=== PATIENT | female | born 1970 | race Caucasian/White ===

== ENCOUNTER 2020-11-08 10:45 | Emergency (ER) | payer OTHER ==
[~2020-11-08] VITALS: Ht 167.6 cm; Wt 81.6 kg
--- NOTE | 2020-11-08 11:02 | NUR ---
Dr Lopez at the bedside for MSE.
--- NOTE | 2020-11-08 11:22 | NUR ---
Patient discharged to home in stable condition. Written and verbal after care instructions given. Patient verbalizes understanding of instructions. Stressed follow up or return to ER for worsening s/s.
[2020-11-08 11:23] VITALS: BP 155/99
== END 2020-11-08 11:24 | disposition home or self-care (01) ==
LOC: ER 10:45
DX: S06.0X0A Concussion without loss of consciousness, initial encounter (principal); S73.102A Unspecified sprain of left hip, initial encounter; W01.198A Fall on same level from slipping, tripping and stumbling with subsequent striking against other object, initial encounter; Y93.01 Activity, walking, marching and hiking; Y92.239 Unspecified place in hospital as the place of occurrence of the external cause; Y99.0 Civilian activity done for income or pay
CPT/HCPCS: A4663

== ENCOUNTER 2020-12-13 10:03 | Emergency (ER) | payer BC, OTHER ==
[~2020-12-13] VITALS: Ht 167.6 cm; Wt 81.6 kg
--- NOTE | 2020-12-13 10:17 | NUR ---
Dr Peraza at the bedside for MSE.
[2020-12-13] MEDS ORDERED: CLONIDINE HCL 0.2 MG TABLET ONE (10:21)
[2020-12-13] MEDS ORDERED: CLONIDINE HCL 0.2 MG TABLET PO ONE (10:30)
[2020-12-13 11:31] LABS: BASOPHILS # (AUTO) 0.1 K/uL (0.0-8.0); BASOPHILS % (AUTO) 0.7 % (0.0-2.0); EOSINOPHILS # (AUTO) 0.1 K/uL (0.0-0.7); EOSINOPHILS % (AUTO) 0.5 % (0.0-7.0); HEMATOCRIT 41.9 % (31.2-41.9); HEMOGLOBIN 14.4 g/dL (10.9-14.3); LYMPHOCYTES # (AUTO) 2.7 K/uL (20.0-40.0); LYMPHOCYTES % (AUTO) 26.9 % (20.5-51.5); MEAN CORPUSCULAR HEMOGLOBIN 35.9 uug (24.7-32.8); MEAN CORPUSCULAR HGB CONC 34 g/dL (32.3-35.6); MEAN CORPUSCULAR VOLUME 104.3 fL (75.5-95.3); MONOCYTES # (AUTO) 0.5 K/uL (2.0-10.0); MONOCYTES % (AUTO) 4.7 % (0.0-11.0); NEUTROPHILS # (AUTO) 6.8 K/uL (1.8-8.9); NEUTROPHILS % (AUTO) 67.2 % (38.5-71.5); PLATELET COUNT (AUTO) 210 K/uL (179-408); RED BLOOD CELL COUNT(AUTO) 4.02 MIL/uL (3.63-4.92); WHITE BLOOD COUNT (AUTO) 10.2 K/uL (3.8-11.8)
[2020-12-13 11:37] LABS: CREATININE 0.6 mg/dL (0.6-1.3)
[2020-12-13 12:33] VITALS: BP 131/90
== END 2020-12-13 12:33 | disposition home or self-care (01) ==
LOC: ER 10:03
DX: I10 Essential (primary) hypertension (principal); Z91.14 Patient's other noncompliance with medication regimen
CPT/HCPCS: 36415; 85025; A4663

== ENCOUNTER 2021-02-03 10:28 | Emergency (ER) | payer BC, OTHER ==
[~2021-02-03] VITALS: Ht 165.1 cm; Wt 83.9 kg
[2021-02-03] MEDS ORDERED: EFIN4SOL TP (10:45)
== END 2021-02-03 11:00 | disposition home or self-care (01) ==
LOC: ER 10:28
DX: B35.1 Tinea unguium (principal); I10 Essential (primary) hypertension
CPT/HCPCS: A4663

== ENCOUNTER 2021-02-14 11:56 | Outpatient (CLI) | payer BC, OTHER ==
[~2021-02-14 11:56] MED LIST: EFIN4SOL TP
== END 2021-02-14 23:59 | disposition home or self-care (01) ==
LOC: US 11:56
PROVIDERS: ATTEND Legal Medicine
DX: Z75.3 Unavailability and inaccessibility of health-care facilities (principal)

== ENCOUNTER 2021-02-17 14:49 | Outpatient (CLI) | payer BC, OTHER | END 2021-02-17 23:59 | disposition home or self-care (01) | LOC: US 14:49 | PROVIDERS: ATTEND Legal Medicine | DX: N63.20 Unspecified lump in the left breast, unspecified quadrant (principal) | CPT/HCPCS: 76642 ==

== ENCOUNTER 2021-10-18 16:03 | Emergency (ER) | payer BC, OTHER ==
[~2021-10-18] VITALS: Ht 165.1 cm; Wt 83.9 kg
--- NOTE | 2021-10-18 17:16 | NUR ---
PT WAS EVALUATED BY DR MERCEDES. PT WAS D/C'd TO HOME. D/C INSTRUCTIONS GIVEN TO THE PT BY DR MERCEDES.
[2021-10-18 17:18] VITALS: BP 142/81
== END 2021-10-18 17:18 | disposition home or self-care (01) ==
LOC: ER 16:07
DX: Z20.822 Contact with and (suspected) exposure to COVID-19 (principal)
CPT/HCPCS: A4663

== ENCOUNTER 2021-12-19 14:16 | Emergency (ER) | payer BC, OTHER ==
[~2021-12-19] VITALS: Ht 165.1 cm; Wt 83.9 kg
--- NOTE | 2021-12-19 14:43 | NUR ---
DR KASPER AT BEDSIDE FOR EVATION.
[2021-12-19] MEDS ORDERED: CLONIDINE HCL 0.2 MG TABLET PO ONE (15:00)
[2021-12-19] MEDS ORDERED: CLONIDINE HCL 0.2 MG TABLET ONE (15:04)
[2021-12-19 15:17] LABS: HEMATOCRIT 42.9 % (31.2-41.9); MEAN CORPUSCULAR HEMOGLOBIN 36.1 uug (24.7-32.8); MEAN CORPUSCULAR VOLUME 101.7 fL (75.5-95.3); PLATELET COUNT (AUTO) 254 K/uL (179-408)
[2021-12-19 15:33] LABS: BILIRUBIN,DIRECT 0.1 mg/dL (0.0-0.2); BILIRUBIN,TOTAL 0.3 mg/dL (0.2-1.0); CREATININE 0.8 mg/dL (0.6-1.3); POTASSIUM 3.2 mmol/L (3.5-5.1); TOTAL PROTEIN, SERUM 7.9 g/dL (6.4-8.2)
--- NOTE | 2021-12-19 17:00 | NUR ---
saline lock dcd. discharged in stable condition.
[2021-12-19 17:42] VITALS: BP 160/98
== END 2021-12-19 17:15 | disposition home or self-care (01) ==
LOC: ER 14:16
DX: I10 Essential (primary) hypertension (principal); F43.9 Reaction to severe stress, unspecified; Z56.4 Discord with boss and workmates; R00.0 Tachycardia, unspecified; Z88.0 Allergy status to penicillin
CPT/HCPCS: 36415; 70030-TC; 70450; 71045; 85025; 85730; 93005; A4663